=== PATIENT | female | born 1995 | race African-American/Black ===

== ENCOUNTER 2021-10-12 14:02 | Emergency (ER) | payer SELFPAY ==
[2021-10-12 14:12] VITALS: BP 131/84; PULSE 68; RESP 17; TEMP 98.1; BMI 25.0
[2021-10-12] MEDS ORDERED: DIPHTH,PERTUSS(ACELL),TET 0.5 ML DISP.SYRIN IM ONE ×2 (15:11→15:12)
== END 2021-10-12 15:15 | disposition home or self-care (01) ==
LOC: JERFT 14:02
PROC: 0JQ10ZZ Repair Face Subcutaneous Tissue and Fascia, Open Approach (ICD-10-PCS; principal; 2021-10-12)
PROC: 3E0234Z Introduction of Serum, Toxoid and Vaccine into Muscle, Percutaneous Approach (ICD-10-PCS; 2021-10-12)
DX: S01.81XA Laceration without foreign body of other part of head, initial encounter (principal); S05.11XA Contusion of eyeball and orbital tissues, right eye, initial encounter
CPT/HCPCS: 90715; 99284-25